=== PATIENT | female | born 1975 | race Caucasian/White ===

== ENCOUNTER 2021-11-17 12:29 | Outpatient (CLI) | payer OTHER, SELFPAY ==
[2021-11-17 14:00] LABS: Albumin* 4.5 g/dL (3.3-5.0)
[2021-11-17 14:03] LABS: Alkaline Phosphatase* 64 U/L (40-150); Aspartate Amino Transferase* 25 U/L (12-35); Bilirubin Direct* 0.1 mg/dL (0.0-0.5); Bilirubin Total* 0.2 mg/dL (0.1-1.5); Cholesterol* 251 mg/dL (90-199); HDL Cholesterol* 61 mg/dL (>=50); LDL Cholesterol Calculated 167 mg/dL (<100); Total Protein* 7.5 g/dL (6.0-8.3); Triglycerides* 117 mg/dL (40-149)
[2021-11-17 14:04] LABS: Alanine Aminotransferase* 29 U/L (4-35)
[2021-11-18 13:42] LABS: Follicle Stimulating Hormone 57.9 IU/L
== END 2021-11-17 12:30 | disposition home or self-care (01) ==
PROVIDERS: PCP Physician Assistant Medical; Visit Provider Family Medicine
DX: E78.5 Hyperlipidemia, unspecified (principal); R79.89 Other specified abnormal findings of blood chemistry; N92.0 Excessive and frequent menstruation with regular cycle
CPT/HCPCS: 80061; 80076; 83001